=== PATIENT | male | born 1955 | race Two or more races ===

== ENCOUNTER 2022-05-02 21:14 | Inpatient (IN) | payer OTHER ==
[~2022-05-02] VITALS: Ht 167.6 cm; Wt 59.0 kg
[~2022-05-02 21:14] MED LIST: AVALIDE 150/12.1 TAB; DILANTIN100 MG
[2022-05-02] MEDS ORDERED: TOPROL XL50 M1 PO (21:28)
[2022-05-02] MEDS ORDERED: PLAVIX75 MG PO (21:29)
[2022-05-02] MEDS ORDERED: ECOTRIN81 MG PO (21:29)
== END 2022-05-12 12:44 | disposition home or self-care (01) | DRG 644 ==
LOC: ER 21:14 → MEDI 05-03 10:06 → SEC-K 05-03 10:06 → MEDI 05-03 12:17
PROVIDERS: ADMIT Internal Medicine; ATTEND Internal Medicine
PROC: BW21ZZZ Computerized Tomography (CT Scan) of Abdomen and Pelvis (ICD-10-PCS; 2022-05-03)
PROC: BW24ZZZ Computerized Tomography (CT Scan) of Chest and Abdomen (ICD-10-PCS; 2022-05-03)
PROC: 4A12X4Z Monitoring of Cardiac Electrical Activity, External Approach (ICD-10-PCS; principal; 2022-05-05)
PROC: B246ZZZ Ultrasonography of Right and Left Heart (ICD-10-PCS; 2022-05-05)
PROC: BW4FZZZ Ultrasonography of Neck (ICD-10-PCS; 2022-05-11)
DX: E21.2 Other hyperparathyroidism (principal); N17.8 Other acute kidney failure; E46 Unspecified protein-calorie malnutrition; E86.0 Dehydration; K59.00 Constipation, unspecified; G40.909 Epilepsy, unspecified, not intractable, without status epilepticus; I10 Essential (primary) hypertension; F17.290 Nicotine dependence, other tobacco product, uncomplicated; Z20.822 Contact with and (suspected) exposure to COVID-19

== ENCOUNTER 2022-06-21 08:42 | Outpatient (CLI) | payer OTHER ==
[~2022-06-21 08:42] MED LIST changes: +ECOTRIN81 MG PO; +PLAVIX75 MG PO; +TOPROL XL50 M1 PO
== END 2022-06-21 11:27 | disposition home or self-care (01) ==
LOC: TOM 08:42
DX: E83.52 Hypercalcemia (principal)
CPT/HCPCS: 70491; Q9965

== ENCOUNTER 2022-08-08 12:11 | Emergency (ER) | payer OTHER ==
[~2022-08-08] VITALS: Ht 170.2 cm; Wt 61.2 kg
[2022-08-08] MEDS ORDERED: CIPROFLOXACIN500 MG PO (12:55)
[2022-08-08] MEDS ORDERED: BIOTINEX (12:55)
[2022-08-08] MEDS ORDERED: FUROSEMIDE20 MG PO (12:55)
[2022-08-08] MEDS ORDERED: AMLODIPINE BESY10 MG PO (12:56)
[2022-08-08] MEDS ORDERED: DILANTIN100 MG PO (12:56)
[2022-08-08] MEDS ORDERED: METRONIDAZOLE500 MG PO (12:56)
[2022-08-08] MEDS ORDERED: PANTOPRAZOLE SO40 MG PO (12:56)
[2022-08-08] MEDS ORDERED: PEPCID AC20 MG PO (19:05)
[2022-08-08] MEDS ORDERED: ONDANSETRON ODT8 MG PO (19:05)
[2022-08-08] MEDS ORDERED: CARAFATE1 GM PO (19:05)
== END 2022-08-08 20:11 | disposition home or self-care (01) ==
LOC: ER 12:11
DX: R11.10 Vomiting, unspecified (principal); R18.8 Other ascites; I10 Essential (primary) hypertension

== ENCOUNTER 2022-08-14 09:16 | Emergency (ER) | payer OTHER ==
[~2022-08-14] VITALS: Ht 167.6 cm; Wt 59.0 kg
[~2022-08-14 09:16] MED LIST changes: +AMLODIPINE BESY10 MG PO; +BIOTINEX; +CARAFATE1 GM PO; +CIPROFLOXACIN500 MG PO; +DILANTIN100 MG PO; +FUROSEMIDE20 MG PO; +METRONIDAZOLE500 MG PO; +ONDANSETRON ODT8 MG PO; +PANTOPRAZOLE SO40 MG PO; +PEPCID AC20 MG PO
== END 2022-08-14 14:59 | disposition home or self-care (01) ==
LOC: ER 09:16
DX: R18.8 Other ascites (principal); I10 Essential (primary) hypertension; G40.909 Epilepsy, unspecified, not intractable, without status epilepticus; Z20.822 Contact with and (suspected) exposure to COVID-19; N20.0 Calculus of kidney; J90 Pleural effusion, not elsewhere classified

== ENCOUNTER 2022-08-15 13:19 | Inpatient (IN) | payer OTHER ==
[~2022-08-15] VITALS: Ht 152.4 cm; Wt 63.5 kg
--- NOTE | 2022-08-15 13:31 | NUR ---
PACIENTE MASCULINO ALERTA Y ORIENTADO X3, REFIERE TENER DOLOR ABDOMINAL, VOMITOS Y DIARREAS DESDE EL TIM DE REGINA.
--- NOTE | 2022-08-15 14:05 | NUR ---
SE LE ORIENTA A PACIENTE SOBRE LAS ORDENES MEDICAS, REFIERE ENTEDER LAS MISMAS. SE CANALIZA Y SE LE COLOCA S/L, SE LE DAMARIS LAS MUETRAS Y SE LE REALIZA PLACA PORTABLE KACI LAS ORDENES MEDICAS.
--- NOTE | 2022-08-15 15:34 | NUR ---
SE RECIBE PTE DEL TURNO ANTERIOR, ALERTA Y ORIENTADO EN VENKAT PATRICIA ESFERAS, UBICADA EN MARIELA NIVEL MAS BAJO, KWON DE IDENTIFICACION Y BARANDAS ELEVADAS POR PRECAUCION. SE OBSERVA CON BUEN PATRON RESPIRATORIO. PIEL TIBIA AL TACTO. PENIDENTE RE EVALUACION MEDICA.
--- NOTE | 2022-08-15 16:17 | NUR ---
SE ORIENTA PTE Y FAMILIAR SOBRE TX LO CUAL REFIERE ENTENDER. SE ADMINISTRA MEDICAMENTO KACI ORDEN MEDICA. PTE AL MOMENTO REHUSA ORDEN DE FLAHERTY, PREFIERE USAR URINAL, SE ENTREGA EL MISMO. SE MANTIENE EN OBSERVACION.
[2022-08-17] MEDS ORDERED: FAMOTIDINE20 MG (11:25)
[2022-08-17] MEDS ORDERED: SUCRALFATE1 GM (11:26)
[2022-08-17] MEDS ORDERED: CLOPIDOGREL BIS75 MG (11:26)
[2022-08-17] MEDS ORDERED: ALENDRONATE SOD70 MG (11:26)
[2022-08-17] MEDS ORDERED: VALSARTAN-HCTZ1 EAC4 (11:26)
[2022-08-17] MEDS ORDERED: CINACALCET HCL30 MG (11:26)
[2022-08-17] MEDS ORDERED: AMLODIPINE BESY10 MG (11:26)
[2022-08-30] MEDS ORDERED: PANTOPRAZOLE SO40 MG (08:15)
[2022-08-30] MEDS ORDERED: VITAMIN D3125 MC1 (08:16)
== END 2022-08-25 19:21 | disposition home or self-care (01) | DRG 644 ==
LOC: ER 13:19 → MEDJ 20:22 → SEC-K 20:22 → MEDJ 22:25 → MEDI 08-19 08:05 → MEDJ 08-19 08:14
PROVIDERS: ADMIT Internal Medicine; ATTEND Internal Medicine
PROC: BW21YZZ Computerized Tomography (CT Scan) of Abdomen and Pelvis using Other Contrast (ICD-10-PCS; 2022-08-15)
PROC: 4A12X4Z Monitoring of Cardiac Electrical Activity, External Approach (ICD-10-PCS; principal; 2022-08-16)
PROC: B24BZZZ Ultrasonography of Heart with Aorta (ICD-10-PCS; 2022-08-16)
DX: E21.2 Other hyperparathyroidism (principal); G40.802 Other epilepsy, not intractable, without status epilepticus; N17.8 Other acute kidney failure; R18.8 Other ascites; K29.00 Acute gastritis without bleeding; E86.0 Dehydration; E87.6 Hypokalemia; E87.8 Other disorders of electrolyte and fluid balance, not elsewhere classified; E55.9 Vitamin D deficiency, unspecified; Z20.822 Contact with and (suspected) exposure to COVID-19; I11.0 Hypertensive heart disease with heart failure; I50.9 Heart failure, unspecified